=== PATIENT | male | born 1980 | race Two or more races ===

== ENCOUNTER 2024-02-20 19:29 | Emergency (ER) | payer MEDICAID, SELFPAY ==
[2024-02-20 19:30] VITALS: PULSE 86; RESP 14; O2SAT 99; BMI 25.0
[2024-02-20 19:37] VITALS: BP 159/90; PULSE 84; RESP 18; TEMP 36.9; O2SAT 98
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
== END 2024-02-20 20:16 | disposition home or self-care (01) ==
PROVIDERS: Emergency Provider Emergency Medicine; PCP Family Medicine
DX: S20.219A Contusion of unspecified front wall of thorax, initial encounter (principal); V89.2XXA Person injured in unspecified motor-vehicle accident, traffic, initial encounter
CPT/HCPCS: 71046; 99283

== ENCOUNTER 2024-04-09 21:12 | Emergency (ER) | payer MEDICAID, SELFPAY ==
[2024-04-09 21:12] VITALS: BMI 25.7
[2024-04-09 21:27] VITALS: BP 139/84; PULSE 97; RESP 18; TEMP 37.1; O2SAT 97
--- NOTE | 2024-04-09 21:33 | PD.EDRME ---
Rapid Medical Screening Exam RME Arrival date/time: 04/09/24 21:12 Chief Complaint: Skin/Abscess/Foreign Body Time Seen by Provider: 04/09/24 21:28 Vital signs: Vital Signs Temperature 98.7 F 04/09/24 21:27 Pulse Rate 97 04/09/24 21:27 Respiratory Rate 18 04/09/24 21:27 Blood Pressure 139/84 H 04/09/24 21:27 Pulse Oximetry (%) 97 04/09/24 21:27 Oxygen Delivery Method Room Air 04/09/24 21:27 E Narrative: Abscesses x2 to left forearm x3-4 days, reports arm swelling/tightness with mild redness. No dm hx.
[2024-04-09 21:58] LABS: Lactate (Lactic Acid) 0.9 mMol/L (0.4-2.0)
[2024-04-09 22:01] LABS: Basophils # (Auto) 0.1 Thou/mm3 (0.0-0.2); Basophils % (Auto) 1 % (0-2.5); Eosinophils # (Auto) 0.3 Thou/mm3 (0.0-0.5); Eosinophils % (Auto) 3 % (0-10); Hematocrit 39.1 % (41.0-53.0); Hemoglobin 12.6 g/dL (13.5-16.0); Immature Granulocytes % (Auto) 0 % (0-0); Immature Granulocytes Auto 0.03 Thou/mm3 (0.00-0.00); Lymphocytes # (Auto) 1.8 Thou/mm3 (1.0-4.8); Lymphocytes % (Auto) 15 % (10-50); Mean Corpuscular HGB Conc 32.2 g/dl (31.0-37.0); Mean Corpuscular Hemoglobin 26.9 pg (25.0-35.0); Mean Corpuscular Volume 83 fL (80-100); Monocytes # (Auto) 0.9 Thou/mm3 (0.0-0.8); Monocytes % (Auto) 7 % (0-12); Neutrophils # (Auto) 8.7 Thou/mm3 (1.8-7.7); Neutrophils % (Auto) 74 % (37-80); Nucleated Red Blood Cell % 0 /100 WBC (0); Platelet Count 268 Thou/mm3 (140-440); RDW Standard Deviation 45.1 fL (35.1-43.9); Red Blood Count 4.69 Miln/mm3 (4.50-5.90); White Blood Count 11.8 Thou/mm3 (3.8-10.6)
[2024-04-09 22:21] LABS: Sed Rate (ESR) 28 mm/hr (0-15)
[2024-04-09 22:32] LABS: Alanine Aminotransferase 16 U/L (10-49); Albumin, Serum 4.5 gm/dL (3.5-5.0); Albumin/Globulin Ratio 1.5 (1.2-2.2); Alkaline Phosphatase 97 U/L (46-116); Anion Gap 7 (7-16); Aspartate Amino Transferase 19 U/L (0-34); BUN/Creatinine Ratio 14 Ratio (12-20); Bilirubin,Total 0.4 mg/dL (0.3-1.2); Blood Urea Nitrogen 14 mg/dL (9-23); Calcium 9.6 mg/dL (8.3-10.6); Calcium (Corrected) 9.6 mg/dL (8.5-10.1); Carbon Dioxide 30.1 mMol/L (20.0-31.0); Chloride 104 mMol/L (98-107); Estimated Creatinine Clearance 106.5 mL/min (>60); Globulin 3.1 gm/dL (2.3-3.5); Glucose 86 mg/dL (74-106); Osmolality,Calculated 280 (275-295); Potassium 4.5 mMol/L (3.4-5.1); Procalcitonin 0.06 ng/ml (0.0-0.49); Sodium 141 mMol/L (136-145); Total Protein 7.6 gm/dL (5.7-8.2); eGFR > 60 See Note
[2024-04-09 22:46] LABS: C-Reactive Protein 1.5 mg/dL (0.0-0.9)
[2024-04-09 23:24] VITALS: BP 147/87; PULSE 86; RESP 18; TEMP 36.7; O2SAT 100
--- NOTE | 2024-04-09 23:25 | EDNOTE_ITS ---
ED Skin Abcess FB-RME/HPI General Chief complaint: Skin/Abscess/Foreign Body Stated complaint: LEFT ARM ABSCESS Time Seen by Provider: 04/09/24 21:28 Source: patient Arrival date/time: 04/09/24 21:12 Mode of arrival: ambulatory Limitations: no limitations RME / HPI RME / HPI narrative: Abscesses x2 to left forearm x3-4 days, reports arm swelling/tightness with mild redness. No dm hx. Dr. Jolly?s Main ED Evaluation: 43-year-old male with a history of frequent staph infection and cellulitis , who presents to the emergency department with redness and swelling over his left forearm after wearing heavy gloves cleaning out a house covered in birds. He has several small pimple like lesions to now have since grown and become increasingly red and has swelling around his forearm. He is left-hand dominant. Related Data Previous Rx's ?Medication ?Instructions ?Recorded ibuprofen 600 mg tablet 600 mg PO TID PRN pain #30 tabs 05/09/23 lidocaine 5 % topical patch 1 patch topical QDAY #15 ea 05/09/23 (Lidoderm) cephalexin 500 mg capsule 500 mg PO QID 5 days #20 caps 04/09/24 ibuprofen 600 mg tablet 600 mg PO Q8H PRN pain #14 tabs 04/09/24 sulfamethoxazole 800 1 tab PO BID #10 tabs 04/09/24 mg-trimethoprim 160 mg tablet (Bactrim DS) Allergies Allergy/AdvReac Type Severity Reaction Status Date / Time No Known Allergies Allergy Verified 02/20/24 19:33 Review of Systems Review of Systems Systems Reviewed: All systems reviewed, normal except as documented Past Medical History Past Medical History NEUROLOGIC: Negative Neurological Disorders or Seizures CARDIAC: Negative Cardiac Disorders, Congestive Heart Failure or Hypertension RESPIRATORY: Negative Chronic Obstructive Pulmonary Disease (COPD) GASTROINTESTINAL: Negative Gastrointestinal Disorders GENITOURINARY: Negative Genitourinary Disorders or Renal Disease MUSCULOSKELETAL: Negative Musculoskeletal Disorders ENDOCRINE: Negative Endocrine Disorders, Diabetes Mellitus Type 1 or Diabetes Mellitus Type 2 HEMATOLOGIC: Negative Blood Disorders PSYCHO/SOCIAL: Positive Recreational Drug Use OTHER HISTORY: Negative Hospitalization, Falls, Blood Transfusions, Blood Transfusion Reaction or Anesthesia Reactions Family History FAMILY HISTORY: Positive Family Cancer (Maternal grandpa-testicular ca) Social History SMOKING STATUS: Current some day smoker SECOND HAND EXPOSURE: Yes SUBSTANCE USE: methamphetamine and other (Vaping CBD) ED Exam Narrative Physical exam: GENERAL APPEARANCE: AxOx4, generally well-appearing, no acute distress. HEENT: NC, AT. MMM. EOMI, clear conjunctiva, oropharynx clear. NECK: Supple without lymphadenopathy. No stiffness or restricted ROM. HEART: Normal rate and regular rhythm, normal S1/S1, no m/r/g LUNGS: CTAB, moving air well. No crackles or wheezes are heard. ABDOMEN: Soft, nontender, nondistended with good bowel sounds heard. BACK: No midline C/T/L spine pain or deformity, No CVAT, no obvious deformity. EXTREMITIES: Without cyanosis, clubbing or edema. MUSCULOSKELETAL: FROM of all major joints, no chest tenderness NEUROLOGICAL: Grossly nonfocal. Alert and oriented, moving all 4 extremities. CN not formally tested but appear grossly intact. Observed to ambulate with normal gait. Skin: Warm and dry without any rash, left distal forearm has several punctate, erythematous, lesions on the dorsal aspect around his hair follicles. 2 largest are 1 cm in size with some early small blistering with clear honey colored fluid. There is no notable pus or fluctuance. He has surrounding edema without erythema. There is edema of the hand without erythema General Limitations: Present no limitations Course Quality Measures none Orders Category Date Time Status CBC Stat Lab 04/09/24 21:40 Completed CMP [Comprehensive Metabolic Panel] Stat Lab 04/09/24 21:40 Completed CRP [C-Reactive Protein] Stat Lab 04/09/24 21:40 Completed ESR [Sed Rate (ESR)] Stat Lab 04/09/24 21:40 Completed Lactate (Lactic Acid) Stat Lab 04/09/24 21:40 Completed Procalcitonin Stat Lab 04/09/24 21:40 Completed Acetaminophen Tab [Tylenol Tab] Med 04/09/24 23:35 Discontinued 650 mg PO X1 ONE Ketorolac Inj [Toradol Inj] Med 04/09/24 23:35 Discontinued 30 mg IM X1 ONE Vital Signs Vital signs: Vital Signs Temperature 98.7 F 04/09/24 21:27 Pulse Rate 97 04/09/24 21:27 Respiratory Rate 18 04/09/24 21:27 Blood Pressure 139/84 H 04/09/24 21:27 Pulse Oximetry (%) 97 04/09/24 21:27 Oxygen Delivery Method Room Air 04/09/24 21:27 Skin / Abscess / Foreign Body MDM Narrative MDM Narrative:: Mr. Forrester has relatively significant folliculitis of his left distal forearm particularly around the dorsal aspect where he has a heavy density of hair. At this point he appears to have primarily clear-colored blistering and drainage, no shaggy purulence. He does report a history of several staph infections of the skin and cellulitis. At this point considering this is an infection on his dominant arm, we will lean towards caution with double coverage for staph and for strep using Bactrim and cephalexin. Patient otherwise well-appearing, no signs of systemic infection, is appropriate for initial outpatient management. Laboratory testing was sent via the RME process which shows no acute findings. He does have mild, nonspecific elevations of his CRP, ESR which are not helpful in this case, due to his lack of specificity, and clinical exam consistent with an infection. Scribe Attestation: I, Myranda Hernandez, am scribing for and in the presence of Dr. Jolly. Provider Notation: Although this document has been carefully reviewed, there may still be some phonetic and other typographical errors. These errors are purely grammatical due to imperfections in the software program and should not be construed in any way to compromise the substance of the patient's medical care during this visit. Patient data External records reviewed:: [facility] previous records Clinical information provided by:: patient Social determinants that could affect healthcare access:: substance use Patient has the following chronic illnesses:: None How is presenting disease/condition affected by chronic disease/condition?: no chronic disease Evaluation data The following diagnostics were reviewed and interpreted by me:: lab results Lab and/or radiology exams considered but not ordered:: None Interpretation Summary: See narrative Medications / Prescriptions Medications or Prescriptions considered but not ordered:: None Medication administrations:: Medication Administration History Discontinued Medications Acetaminophen (Acetaminophen 325 Mg Tablet) 650 mg PO X1 ONE Stop: 04/09/24 23:36 Last Admin: 04/09/24 23:52 Dose: 650 mg Documented By: TERESE Ketorolac Tromethamine (Ketorolac Inj 60 Mg/2 Ml Vial) 30 mg IM X1 ONE Stop: 04/09/24 23:36 Last Admin: 04/09/24 23:52 Dose: 30 mg Documented By: SF As above, if any Consultations Consultation(s) initiated? (list below): No Diagnosis Skin/Abscess Differential Diagnosis: abscess of skin or subcutaneous tissue, viral exanthem, dermatophytosis, cellulitis, impetigo and contact dermatitis Most likely diagnosis given after review of the tests above:: See below Admission Indicated Admission indicated?: not indicated Explain why admission is indicated or not indicated:: Patient has no emergent abnormalities in their studies and can be managed on an outpatient basis. Admission Request Was there a request for admission?: No Disposition Plan Disposition Plan: Discharge Discharge Attestation Discharge Attestation: The patient and all family members were given an opportunity to ask questions and understood the discharge instructions. Discharge instructions specifically effects, indications for sooner follow up or return to the emergency department, and the expected course of current diagnosis. Patient condition: Stable Discharge Plan Plan Patient Disposition: HOME (Self Care) Prescriptions/Referrals Prescriptions/Med Rec: New sulfamethoxazole-trimethoprim [Bactrim DS] 800-160 mg tablet 1 tab PO BID Qty: 10 0RF cephalexin 500 mg capsule 500 mg PO QID 5 Days Qty: 20 0RF ibuprofen 600 mg tablet 600 mg PO Q8H PRN (Reason: pain) Qty: 14 0RF No Action ibuprofen 600 mg tablet 600 mg PO TID PRN (Reason: pain) Qty: 30 0RF lidocaine [Lidoderm] 5 % adhesive patch,medicated 1 patch topical QDAY Qty: 15 0RF Rx Instructions: leave on most painful area for up to 12 hrs Referrals: Fabian Guy MD [Primary Care Provider] - In 1 week Problem List Clinical Impression: Folliculitis, Cellulitis Patient/Caregiver Discharge Instructions Education Materials: ED Cellulitis, ED Folliculitis Additional Instructions: Follow-up with your primary care doctor in 3 to 5 days for recheck. You can return to the emergency department sooner if symptoms worsen or if you notice any new, concerning issues. Print Language: Wolof Stand Alone Forms: [employer] Award Info., Work/School Release, Patient Portal Info Letter
[2024-04-09] MEDS: KETOROLAC INJ 60 MG/2 ML VIAL 30 MG IM (23:52)
[2024-04-09] MEDS: ACETAMINOPHEN 325 MG TABLET 650 MG PO (23:52)
[2024-04-10 00:07] VITALS: BP 137/90; PULSE 78; RESP 16; TEMP 36.7; O2SAT 99
== END 2024-04-10 00:08 | disposition home or self-care (01) ==
PROVIDERS: Physician Assistant; Emergency Provider Emergency Medicine; PCP Family Medicine
DX: L03.114 Cellulitis of left upper limb (principal); L73.9 Follicular disorder, unspecified
CPT/HCPCS: 36415; 80053; 83605; 84145; 85025; 85652; 86140; 96372; 99283; J1885; A9270

== ENCOUNTER 2024-04-14 06:06 | Emergency (ER) | payer MEDICAID, SELFPAY ==
[2024-04-14 06:07] VITALS: BMI 25.7
[2024-04-14 06:09] VITALS: BP 150/90; PULSE 72; RESP 18; TEMP 36.6; O2SAT 100
[2024-04-14] MEDS: CLINDAMYCIN PHOS INJ 150 MG/ML VIAL 6 ML 600 MG IM (06:35)
--- NOTE | 2024-04-14 06:47 | EDNOTE_ITS ---
<Statement entered by Sarai Childers MD - 04/14/24 07:39> As co-signing physician, I was present and available for consult prn. I concur with the plan and care as documented by the midlevel provider. ED Skin Abcess FB-RME/HPI General Chief complaint: Skin/Abscess/Foreign Body Stated complaint: SORES TO LEFT ARM Time Seen by Provider: 04/14/24 06:13 Source: patient Arrival date/time: 04/14/24 06:06 This is a 43-year-old male who presents to the emergency department for follow- up on left arm infection. Does have recurrent history of frequent staph infection and cellulitis , who presents to the emergency department with redne ss and swelling over his left forearm he does report he was evaluated here in the emergency around 6 days ago has been taking his antibiotic however he did try to squeeze this small pimple-like lesions and now is red. Patient has 3 pimple-like lesions. Denies fever, chills no rigors Mode of arrival: ambulatory Limitations: no limitations Related Data Previous Rx's ?Medication ?Instructions ?Recorded ibuprofen 600 mg tablet 600 mg PO TID PRN pain #30 tabs 05/09/23 lidocaine 5 % topical patch 1 patch topical QDAY #15 ea 05/09/23 (Lidoderm) ibuprofen 600 mg tablet 600 mg PO Q8H PRN pain #14 tabs 04/09/24 sulfamethoxazole 800 1 tab PO BID #10 tabs 04/09/24 mg-trimethoprim 160 mg tablet (Bactrim DS) clindamycin HCl 300 mg capsule 300 mg PO Q8H 7 days #21 caps 04/14/24 mupirocin 2 % topical ointment 1 applic topical BID 7 days #15 04/14/24 grams Allergies Allergy/AdvReac Type Severity Reaction Status Date / Time No Known Allergies Allergy Verified 04/14/24 06:09 Review of Systems Review of Systems Systems Reviewed: All systems reviewed, normal except as documented Narrative Review of Systems: See HPI ED Exam Narrative Physical exam: GENERAL APPEARANCE: AxOx4, generally well-appearing, no acute distress appears disheveled. HEENT: NC, AT. MMM. EOMI, clear conjunctiva, oropharynx clear. NECK: Supple without lymphadenopathy. No stiffness or restricted ROM. HEART: Normal rate and regular rhythm, normal S1/S1, no m/r/g LUNGS: CTAB, moving air well. No crackles or wheezes are heard. ABDOMEN: Soft, nontender, nondistended with good bowel sounds heard. NEUROLOGICAL: Grossly nonfocal. Alert and oriented, moving all 4 extremities. CN not formally tested but appear grossly intact. Observed to ambulate with normal gait. Skin: Warm and dry without any rash, left distal forearm has there are 2 several punctate, erythematous, lesions on the dorsal aspect around his hair follicles. 2 largest are 1 cm in size with some early small blistering with clear honey colored fluid. There is no notable pus or fluctuance. He has surrounding edema without erythema. There is edema of the hand without erythema General Limitations: Present no limitations Course Quality Measures none Orders Category Date Time Status Clindamycin Vial [Cleocin vial] Med 04/14/24 06:22 Discontinued 600 mg IM X1 ONE Vital Signs Vital signs: Vital Signs Temperature 97.8 F 04/14/24 06:09 Pulse Rate 72 04/14/24 06:09 Respiratory Rate 18 04/14/24 06:09 Blood Pressure 150/90 H 04/14/24 06:09 Pulse Oximetry (%) 100 04/14/24 06:09 Oxygen Delivery Method Room Air 04/14/24 06:09 Skin / Abscess / Foreign Body MDM Narrative MDM Narrative:: 43-year-old male evaluated emergency department for small cellulitis follow-up. Reports the cellulitis has remained the same. Does report he took his Bactrim antibiotic. Still has a small lesions they are not fluctuant appear cellulitic. Has been attempting to express the areas which worsened the swelling. I did teach the patient not to be trying to express the areas or pick at them. Advised to do warm compresses 3 times a day apply the mupirocin I sent to the pharmacy. I did start him on clindamycin for the next 7 days. Advised him to follow-up with his PCP. There is no signs of sepsis, or systemic infection. Patient is awake alert vital signs stable. Will treat with a second round of antibiotics. Patient data External records reviewed:: [facility] previous records Clinical information provided by:: patient Social determinants that could affect healthcare access:: substance use Patient has the following chronic illnesses:: None How is presenting disease/condition affected by chronic disease/condition?: no chronic disease Evaluation data The following diagnostics were reviewed and interpreted by me:: lab results Lab and/or radiology exams considered but not ordered:: None Interpretation Summary: See narrative Medications / Prescriptions Medications or Prescriptions considered but not ordered:: None Medication administrations:: Medication Administration History Discontinued Medications Clindamycin Phosphate (Clindamycin Phos Inj 150 Mg/Ml Vial 6 Ml) 600 mg IM X1 ONE Stop: 04/14/24 06:23 Last Admin: 04/14/24 06:35 Dose: 600 mg Documented By: CB As above, if any Consultations Consultation(s) initiated? (list below): No Diagnosis Skin/Abscess Differential Diagnosis: abscess of skin or subcutaneous tissue, viral exanthem, dermatophytosis, cellulitis, impetigo and contact dermatitis Most likely diagnosis given after review of the tests above:: See below Admission Indicated Admission indicated?: not indicated Explain why admission is indicated or not indicated:: Patient has no emergent abnormalities in their studies and can be managed on an outpatient basis. Admission Request Was there a request for admission?: No Disposition Plan Disposition Plan: Discharge Discharge Attestation Discharge Attestation: The patient and all family members were given an opportunity to ask questions and understood the discharge instructions. Discharge instructions specifically effects, indications for sooner follow up or return to the emergency department, and the expected course of current diagnosis. Patient condition: Stable Discharge Plan Plan Patient Disposition: HOME (Self Care) Prescriptions/Referrals Prescriptions/Med Rec: New clindamycin HCl 300 mg capsule 300 mg PO Q8H 7 Days Qty: 21 0RF mupirocin 2 % ointment 1 applic topical BID 7 Days Qty: 15 0RF No Action sulfamethoxazole-trimethoprim [Bactrim DS] 800-160 mg tablet 1 tab PO BID Qty: 10 0RF ibuprofen 600 mg tablet 600 mg PO Q8H PRN (Reason: pain) Qty: 14 0RF ibuprofen 600 mg tablet 600 mg PO TID PRN (Reason: pain) Qty: 30 0RF lidocaine [Lidoderm] 5 % adhesive patch,medicated 1 patch topical QDAY Qty: 15 0RF Rx Instructions: leave on most painful area for up to 12 hrs Problem List Clinical Impression: Cellulitis, Abscess, Abscess of skin or subcutaneous tissue Patient/Caregiver Discharge Instructions Discharge Activity: activity as tolerated Education Materials: Abscess Drainage, ED Cellulitis Additional Instructions: Please do not pick at your wounds it worsens the area. Please apply the new antibiotic ointment to the area 3 times a day. 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 It might take some time for these wounds to heal and they become fluctuance and they start draining he can follow-up with your clinic for wound recheck. If you have any worsening symptoms you can return to the emergency department Print Language: Burmese Stand Alone Forms: Lupe Award Info., Patient Portal Info Letter PA/JOHNY Supervising Physician PA/JOHNY Supervising Physician: Dr. Childers
== END 2024-04-14 06:38 | disposition home or self-care (01) ==
LOC: SERX 06:44
PROVIDERS: Emergency Provider Emergency Medicine; PCP Family Medicine
DX: L03.114 Cellulitis of left upper limb (principal); L02.413 Cutaneous abscess of right upper limb
CPT/HCPCS: 96372; 99283; J0736

== ENCOUNTER 2024-12-27 08:47 | Emergency (ER) | payer MEDICAID, SELFPAY ==
[2024-12-27 09:04] VITALS: BP 128/86; PULSE 83; RESP 16; TEMP 36.9; O2SAT 97; BMI 25.0
--- NOTE | 2024-12-27 09:10 | XR_ITS ---
Examination: CT abdomen and pelvis without contrast. Coronal 3-D reconstructions. Sagittal 2-D reconstructions. Date and time of exam:December 27, 2024, 0921 hours INDICATIONS: Tenderness in the abdomen and abdominal pain this week CTDI: vol (mGy): 7.09 DLP: (mGycm): 117 Technique: Axial images of the abdomen have been obtained, 3 mm slice thickness Intravenous contrast material has not been administered. Low dose protocols were performed. One or more of the following dose reduction techniques were used; automated exposure control, adjustment of the mA and/or KV according to patient size, use of iterative reconstruction technique. Findings: No focal liver or splenic lesions No gallstones No pancreatic mass on this noncontrast study No extrahepatic biliary tract dilatation Bilateral renal calculi, the largest left kidney 6 mm No hydronephrosis or ureteral calculi Aorta normal size No pericecal inflammatory change No diverticulitis Contracted urinary bladder No prostatomegaly IMPRESSION: Limited noncontrast study No definite pancreatic mass Bilateral nonobstructing renal calculi
--- NOTE | 2024-12-27 09:10 | PD.EDRME ---
Rapid Medical Screening Exam E Arrival date/time: 12/27/24 08:47 44-year-old male with no known medical history presents to the emergency room with a chief complaint of tenderness and pain to the epigastric area of his abdomen. Patient states he recently got out of intermediate and was told he may have pancreatic cancer. I have greeted and performed a focused initial assessment of this patient. A comprehensive ED assessment and evaluation of the patient, analysis of all test results, and completion of the medical decision making process will be conducted by additional ED providers. Chief Complaint: General Adult/Misc Complain Time Seen by Provider: 12/27/24 09:04 Vital signs: Vital Signs Temperature 98.4 F 12/27/24 09:04 Pulse Rate 83 12/27/24 09:04 Respiratory Rate 16 12/27/24 09:04 Blood Pressure 128/86 H 12/27/24 09:04 Pulse Oximetry (%) 97 12/27/24 09:04 Oxygen Delivery Method Room Air 12/27/24 09:04 Vital signs reviewed by provider: Yes
[2024-12-27 09:22] LABS: Basophils # (Auto) 0.0 Thou/mm3 (0.0-0.2); Basophils % (Auto) 0 % (0-2.5); Eosinophils # (Auto) 0.2 Thou/mm3 (0.0-0.5); Eosinophils % (Auto) 2 % (0-10); Hematocrit 42.0 % (41.0-53.0); Hemoglobin 13.5 g/dL (13.5-16.0); Immature Granulocytes Auto 0.02 Thou/mm3 (0.00-0.00); Lymphocytes # (Auto) 1.9 Thou/mm3 (1.0-4.8); Lymphocytes % (Auto) 19 % (10-50); Mean Corpuscular HGB Conc 32.1 g/dl (31.0-37.0); Mean Corpuscular Hemoglobin 28.0 pg (25.0-35.0); Mean Corpuscular Volume 87 fL (80-100); Monocytes # (Auto) 0.6 Thou/mm3 (0.0-0.8); Monocytes % (Auto) 6 % (0-12); Neutrophils # (Auto) 7.0 Thou/mm3 (1.8-7.7); Neutrophils % (Auto) 72 % (37-80); Nucleated Red Blood Cell # 0.00 Thou/mm3 (0.00-0.00); Nucleated Red Blood Cell % 0 /100 WBC (0); Platelet Count 280 Thou/mm3 (140-440); RDW Standard Deviation 43.0 fL (35.1-43.9); Red Blood Count 4.83 Miln/mm3 (4.50-5.90); White Blood Count 9.8 Thou/mm3 (3.8-10.6)
[2024-12-27 09:39] LABS: Collection Type, Urine Clean Catch
[2024-12-27 09:54] LABS: Bilirubin,Urine Negative (Negative); Blood,Urine 1+ (Negative); Clarity,Urine Clear (Clear/Hazy); Color,Urine Lt-Yellow (Lt Yel-Yel); Glucose, Urine Negative (Negative); Ketones,Urine Negative (Negative); Leukocyte Esterase,Urine Negative (Negative); Nitrite,Urine Negative (Negative); PH,Urine 5.5 (5.0-7.0); Protein,Urine Trace (Neg - Trace); RBC,Urine 18 /hpf (0-3); Specific Gravity,Urine 1.031 (1.001-1.035); Squamous Epithelial Cell,Urine < 1 /hpf (0-5); Urobilinogen,Urine Negative mg/dL (0.0-1.0); WBC,Urine 4 /hpf (0-5)
[2024-12-27 10:07] LABS: Alanine Aminotransferase 22 U/L (10-49); Albumin, Serum 4.8 gm/dL (3.5-5.0); Albumin/Globulin Ratio 1.8 (1.2-2.2); Anion Gap 9 (7-16); Aspartate Amino Transferase 22 U/L (0-34); BUN/Creatinine Ratio 16 Ratio (12-20); Bilirubin,Total 0.4 mg/dL (0.3-1.2); Blood Urea Nitrogen 19 mg/dL (9-23); Calcium 10.2 mg/dL (8.3-10.6); Calcium (Corrected) 10.2 mg/dL (8.5-10.1); Carbon Dioxide 27.9 mMol/L (20.0-31.0); Chloride 105 mMol/L (98-107); Creatinine (Component) 1.2 mg/dL (0.6-1.3); Estimated Creatinine Clearance 87.9 mL/min (>60); Globulin 2.6 gm/dL (2.3-3.5); Glucose 115 mg/dL (74-106); Lipase 26 U/L (12-53); Osmolality,Calculated 286 (275-295); Potassium 3.7 mMol/L (3.4-5.1); Sodium 142 mMol/L (136-145); Total Protein 7.4 gm/dL (5.7-8.2); eGFR > 60 See Note
--- NOTE | 2024-12-27 11:00 | PC.NURSE ---
in to assess pt. pt with c/o abd pain for the past few day. states he was recently released from jail and was told he may have pancreatic cancer. pt without further complaints at this time. pending provider review. call light is within reach. plan of care ongoing.
[2024-12-27 11:04] LABS: Alkaline Phosphatase 90 U/L (46-116)
--- NOTE | 2024-12-27 11:10 | PD.EDADULT ---
ED General RME/HPI General Chief complaint: General Adult/Misc Complain Stated complaint: WANTS CHECK FOR PANCREATIC CANCER; ABD PAIN Time Seen by Provider: 12/27/24 09:04 Arrival date/time: 12/27/24 08:47 CC: Intermittent epigastric and upper abdominal pain recent onset several days ago. Patient was recently discharged from senior care where he was told he has pancreatic cancer . Patient is awake alert oriented nontoxic-appearing not in any acute distress, no active vomiting denies fever chills chest pain shortness of breath difficulty breathing headache blurred vision seeing spots. Patient denies drinking alcohol. RME / HPI RME / HPI narrative: 12/27/24 08:47 44-year-old male with no known medical history presents to the emergency room with a chief complaint of tenderness and pain to the epigastric area of his abdomen. Patient states he recently got out of custodial and was told he may have pancreatic cancer. I have greeted and performed a focused initial assessment of this patient. A comprehensive ED assessment and evaluation of the patient, analysis of all test results, and completion of the medical decision making process will be conducted by additional ED providers. Related Data Previous Rx's ?Medication ?Instructions ?Recorded ibuprofen 600 mg tablet 600 mg PO TID PRN pain #30 tabs 05/09/23 lidocaine 5 % topical patch 1 patch topical QDAY #15 ea 05/09/23 (Lidoderm) ibuprofen 600 mg tablet 600 mg PO Q8H PRN pain #14 tabs 04/09/24 sulfamethoxazole 800 1 tab PO BID #10 tabs 04/09/24 mg-trimethoprim 160 mg tablet (Bactrim DS) pantoprazole 20 mg tablet,delayed 20 mg PO QDAY #30 tabs 12/27/24 release (Protonix) Allergies Allergy/AdvReac Type Severity Reaction Status Date / Time No Known Allergies Allergy Verified 12/27/24 08:52 Review of Systems Review of Systems Narrative Review of Systems: GEN: No fever, no chills, no weight loss EYES: No discharge, no visual changes, no pain HEENT: No ear pain, no congestion, no sore throat PULM: No shortness of breath, no cough, no congestion CV: No chest pain, no dyspnea on exertion, no palpitations GI: No nausea, no vomiting, no diarrhea, + pain, no constipation : No frequency, no urgency, no dysuria MUSC/SKEL: No joint pain, no back pain SKIN: No rash PSYCH: No hallucinations, no depression HEME/LYMPH: No easy bleeding or bruising tendencies NEURO: No weakness, no headache Past Medical History Past Medical History NEUROLOGIC: Negative Neurological Disorders or Seizures CARDIAC: Negative Cardiac Disorders, Congestive Heart Failure or Hypertension RESPIRATORY: Negative Chronic Obstructive Pulmonary Disease (COPD) GASTROINTESTINAL: Negative Gastrointestinal Disorders GENITOURINARY: Negative Genitourinary Disorders or Renal Disease MUSCULOSKELETAL: Negative Musculoskeletal Disorders ENDOCRINE: Negative Endocrine Disorders, Diabetes Mellitus Type 1 or Diabetes Mellitus Type 2 HEMATOLOGIC: Negative Blood Disorders PSYCHO/SOCIAL: Positive Recreational Drug Use OTHER HISTORY: Negative Hospitalization, Falls, Blood Transfusions, Blood Transfusion Reaction or Anesthesia Reactions Family History FAMILY HISTORY: Positive Family Cancer (Maternal grandpa-testicular ca) Social History SMOKING STATUS: Current some day smoker SECOND HAND EXPOSURE: Yes SUBSTANCE USE: methamphetamine and other (Vaping CBD) ED Exam Narrative Physical exam: [General: Not in any acute distress Head normocephalic HEENT: Within acceptable limits Neck is supple nontender Chest equal chest rise nontender to palpation Respiratory: Clear to auscultation no wheezes crackles or rubs CV: Rate rhythm is regular no murmurs rubs or clicks Abdomen is soft nontender, in all 4 quadrants including the epigastrium no reflexive guarding no rebound tenderness. positive bowel sounds all 4 quadrants Back: No CVA tenderness no spinous process tenderness from cervical spine thoracic and lumbar spine Skin: Intact no petechiae rash induration ulceration or crepitus Extremities: Moving all extremity against resistance cap refill less than 2 seconds neurosensory intact Neuro: Awake alert oriented x3 Glascow coma 15 no focal deficits] Course Course Course Narrative: Patient has a benign exam, laboratory results are unremarkable. Of low index of suspicion of any acute pathologic finding. Will discharge the patient home on the little bit of Protonix, and advised him to avoid greasy spicy and fatty foods for the next 10 days or so. Patient is to follow-up with Dr. Guy as stated Quality Measures none Orders Category Date Time Status CT abdomen pelvis wo con Stat Exams 12/27/24 09:10 Completed CBC Stat Lab 12/27/24 09:15 Completed CMP [Comprehensive Metabolic Panel] Stat Lab 12/27/24 09:15 Completed Lipase Stat Lab 12/27/24 09:15 Completed UA [Urinalysis] Stat Lab 12/27/24 09:30 Completed Urine Culture Stat Lab 12/27/24 09:30 Received Vital Signs Vital signs: Vital Signs Temperature 98.4 F 12/27/24 09:04 Pulse Rate 83 12/27/24 09:04 Respiratory Rate 16 12/27/24 09:04 Blood Pressure 128/86 H 12/27/24 09:04 Pulse Oximetry (%) 97 12/27/24 09:04 Oxygen Delivery Method Room Air 12/27/24 09:04 Discharge Plan Plan Patient Disposition: HOME (Self Care) Patient condition on transfer: Stable Prescriptions/Referrals Prescriptions/Med Rec: New pantoprazole [Protonix] 20 mg tablet,delayed release (DR/EC) 20 mg PO QDAY Qty: 30 0RF No Action sulfamethoxazole-trimethoprim [Bactrim DS] 800-160 mg tablet 1 tab PO BID Qty: 10 0RF ibuprofen 600 mg tablet 600 mg PO Q8H PRN (Reason: pain) Qty: 14 0RF ibuprofen 600 mg tablet 600 mg PO TID PRN (Reason: pain) Qty: 30 0RF lidocaine [Lidoderm] 5 % adhesive patch,medicated 1 patch topical QDAY Qty: 15 0RF Rx Instructions: leave on most painful area for up to 12 hrs Referrals: No Primary/Family,Physician [Primary Care Provider] - In 1 week Fabian Guy MD [Physician, Family Practice] - In 1 week Problem List Clinical Impression: Abdominal pain Patient/Caregiver Discharge Instructions Other Activity Instructions:: Avoid greasy spicy and fatty foods take the medicines for 1 month just to see if they help out. If there is a worsening of symptoms in spite of the medications return the emergency room medially for further evaluation. Education Materials: Abdominal Pain, ED Diet, [place] (Adult) Print Language: Tajik Stand Alone Forms: Lupe Award Info., Patient Portal Info Letter, Work/School Release PA/NATIONAL SERVICE OFFICER Supervising Physician PA/NATIONAL SERVICE OFFICER Supervising Physician: Lucho Ross ENP [facility] Clinical Information Provided by: patient Medical Records reviewed [facility] Meds/Rx considered, not ordered None Labs/Rad/Tests considered, not ordered None Chronic Illness/Social Conditions which may negatively complicate care or outcome(s)-explain: None or not applicable EKG EKG not done Labs Labs: interpreted by dc Lab(s) Interpretation(s): CBC shows no acute leukocytosis anemia thrombocytopenia CMP shows a mildly elevated glucose other than otherwise no other electrolyte imbalances no renal impairment transaminitis or T. bili elevation Lipase is 26 Urine has trace blood but no other acute finding suggestive of UTI. Imaging Imaging interpretation: interpreted by me Imaging Interpretation(s): CT of the abdomen pelvis is unremarkable with no acute finding including no pancreatic mass. Medication Administration(s) none Diagnosis Differential Diagnosis ED Complaint MDM: Pancreatic mass reflux disease abdominal pain
[2024-12-27 11:15] VITALS: BP 126/72; PULSE 80; RESP 18; TEMP 36.8; O2SAT 98
== END 2024-12-27 11:24 | disposition home or self-care (01) ==
PROVIDERS: Nurse Practitioner Family; Emergency Provider Family Medicine
DX: R10.13 Epigastric pain (principal)
CPT/HCPCS: 36415; 74176; 80053; 81001; 83690; 85025; 87086; 99284

== ENCOUNTER 2025-01-24 07:57 | Emergency (ER) | payer MEDICAID, SELFPAY ==
[2025-01-24 08:07] VITALS: BP 146/88; PULSE 80; RESP 16; TEMP 36.7; O2SAT 99; BMI 25.0
--- NOTE | 2025-01-24 08:15 | XR_ITS ---
Examination: CT abdomen and pelvis without contrast. Coronal 3-D reconstructions. Sagittal 2-D reconstructions. Date and time of exam: January 24, 2025, 0927 hours, comparison 12/27/2024 INDICATIONS: Right upper abdominal pain and nausea today, history kidney stones on CT study 12/27/2024 CTDI: vol (mGy): 5.95 DLP: (mGycm): 368 Technique: Axial images of the abdomen have been obtained, 3 mm slice thickness Intravenous contrast material has not been administered. Low dose protocols were performed. One or more of the following dose reduction techniques were used; automated exposure control, adjustment of the mA and/or KV according to patient size, use of iterative reconstruction technique. Findings: No visualized liver or splenic lesion No gallstones No pancreatic or adrenal mass Bilateral renal calculi, 2 to 5 mm No hydronephrosis or ureteral calculi Aorta normal size. Normal appendix No bowel obstruction Contracted urinary bladder No prostatomegaly Grade 1 anterolisthesis L4 on L5 IMPRESSION: Bilateral nonobstructing renal calculi No hydronephrosis or ureteral calculi No CT findings of appendicitis bowel obstruction or diverticulitis No bladder calculi
--- NOTE | 2025-01-24 08:29 | XR_ITS ---
Examination: Abdomen sonogram, Limited Date and time of exam: January 24, 2025, 0859 hours INDICATIONS: Right upper abdominal pain beginning 3 months ago Technique: Real-time albright scale transabdominal sonographic images of the upper abdomen obtained. Findings: Gallbladder. Normal common bile duct 0.3 cm Pancreatic head 1.7 cm Liver 14.8 cm lobular contour fatty infiltration Normal hepatopetal portal venous flow Patent IVC IMPRESSION: Normal gallbladder Primary pelvis lighters disease with fatty infiltration no focal liver lesions
--- NOTE | 2025-01-24 08:29 | PD.EDABDPN ---
ED Abdominal Pain RME/HPI General Chief Complaint: Abdominal Pain Stated complaint: RUQ ABD PAIN, 09/06 Time seen by provider: 01/24/25 08:03 Arrival date/time: 01/24/25 07:57 44-year-old male Related Data Previous Rx's ?Medication ?Instructions ?Recorded ibuprofen 600 mg tablet 600 mg PO TID PRN pain #30 tabs 05/09/23 lidocaine 5 % topical patch 1 patch topical QDAY #15 ea 05/09/23 (Lidoderm) ibuprofen 600 mg tablet 600 mg PO Q8H PRN pain #14 tabs 04/09/24 sulfamethoxazole 800 1 tab PO BID #10 tabs 04/09/24 mg-trimethoprim 160 mg tablet (Bactrim DS) pantoprazole 20 mg tablet,delayed 20 mg PO QDAY #30 tabs 12/27/24 release (Protonix) Allergies Allergy/AdvReac Type Severity Reaction Status Date / Time No Known Allergies Allergy Verified 01/24/25 08:00 Course Orders Category Date Time Status CT abdomen pelvis wo con Stat Exams 01/24/25 08:15 Ordered CBC Stat Lab 01/24/25 08:15 Ordered CMP [Comprehensive Metabolic Panel] Stat Lab 01/24/25 08:15 Ordered Lipase Stat Lab 01/24/25 08:15 Ordered UA [Urinalysis] Stat Lab 01/24/25 08:15 Ordered Urine Culture Stat Lab 01/24/25 08:15 Ordered Vital Signs Vital signs: Vital Signs Temperature 98.1 F 01/24/25 08:07 Pulse Rate 80 01/24/25 08:07 Respiratory Rate 16 01/24/25 08:07 Blood Pressure 146/88 H 01/24/25 08:07 Pulse Oximetry (%) 99 01/24/25 08:07 Oxygen Delivery Method Room Air 01/24/25 08:07 Discharge Plan Prescriptions/Referrals Prescriptions/Med Rec: No Action sulfamethoxazole-trimethoprim [Bactrim DS] 800-160 mg tablet 1 tab PO BID Qty: 10 0RF ibuprofen 600 mg tablet 600 mg PO Q8H PRN (Reason: pain) Qty: 14 0RF pantoprazole [Protonix] 20 mg tablet,delayed release (DR/EC) 20 mg PO QDAY Qty: 30 0RF ibuprofen 600 mg tablet 600 mg PO TID PRN (Reason: pain) Qty: 30 0RF lidocaine [Lidoderm] 5 % adhesive patch,medicated 1 patch topical QDAY Qty: 15 0RF Rx Instructions: leave on most painful area for up to 12 hrs Patient/Caregiver Discharge Instructions Print Language: Persian
[2025-01-24 08:38] LABS: Basophils # (Auto) 0.1 Thou/mm3 (0.0-0.2); Basophils % (Auto) 1 % (0-2.5); Eosinophils # (Auto) 0.2 Thou/mm3 (0.0-0.5); Eosinophils % (Auto) 2 % (0-10); Hematocrit 43.2 % (41.0-53.0); Hemoglobin 13.9 g/dL (13.5-16.0); Immature Granulocytes Auto 0.03 Thou/mm3 (0.00-0.00); Lymphocytes # (Auto) 1.5 Thou/mm3 (1.0-4.8); Lymphocytes % (Auto) 15 % (10-50); Mean Corpuscular HGB Conc 32.2 g/dl (31.0-37.0); Mean Corpuscular Hemoglobin 27.7 pg (25.0-35.0); Mean Corpuscular Volume 86 fL (80-100); Monocytes # (Auto) 0.5 Thou/mm3 (0.0-0.8); Monocytes % (Auto) 5 % (0-12); Neutrophils # (Auto) 7.6 Thou/mm3 (1.8-7.7); Neutrophils % (Auto) 77 % (37-80); Nucleated Red Blood Cell # 0.00 Thou/mm3 (0.00-0.00); Nucleated Red Blood Cell % 0 /100 WBC (0); Platelet Count 254 Thou/mm3 (140-440); RDW Standard Deviation 42.6 fL (35.1-43.9); Red Blood Count 5.02 Miln/mm3 (4.50-5.90); White Blood Count 9.8 Thou/mm3 (3.8-10.6)
[2025-01-24 08:59] LABS: Alanine Aminotransferase 28 U/L (10-49); Albumin, Serum 4.9 gm/dL (3.5-5.0); Albumin/Globulin Ratio 2.0 (1.2-2.2); Alkaline Phosphatase 89 U/L (46-116); Anion Gap 7 (7-16); Aspartate Amino Transferase 26 U/L (0-34); BUN/Creatinine Ratio 17 Ratio (12-20); Bilirubin,Total 0.4 mg/dL (0.3-1.2); Blood Urea Nitrogen 17 mg/dL (9-23); Calcium 9.6 mg/dL (8.3-10.6); Calcium (Corrected) 9.6 mg/dL (8.5-10.1); Carbon Dioxide 30.9 mMol/L (20.0-31.0); Chloride 103 mMol/L (98-107); Creatinine (Component) 1.0 mg/dL (0.6-1.3); Estimated Creatinine Clearance 105.4 mL/min (>60); Globulin 2.4 gm/dL (2.3-3.5); Glucose 114 mg/dL (74-106); Lipase 30 U/L (12-53); Osmolality,Calculated 283 (275-295); Potassium 4.8 mMol/L (3.4-5.1); Sodium 141 mMol/L (136-145); Total Protein 7.3 gm/dL (5.7-8.2); eGFR > 60 See Note
[2025-01-24 09:01] LABS: Collection Type, Urine Clean Catch
[2025-01-24 09:07] LABS: Bilirubin,Urine Negative (Negative); Blood,Urine Trace (Negative); Clarity,Urine Clear (Clear/Hazy); Color,Urine Lt-Yellow (Lt Yel-Yel); Glucose, Urine Negative (Negative); Ketones,Urine Negative (Negative); Leukocyte Esterase,Urine Negative (Negative); Nitrite,Urine Negative (Negative); PH,Urine 6.0 (5.0-7.0); Protein,Urine Negative (Neg - Trace); RBC,Urine 10 /hpf (0-3); Specific Gravity,Urine 1.024 (1.001-1.035); Squamous Epithelial Cell,Urine 1 /hpf (0-5); Urobilinogen,Urine Negative mg/dL (0.0-1.0); WBC,Urine 1 /hpf (0-5)
--- NOTE | 2025-01-24 09:42 | EDRME_ITS ---
Rapid Medical Screening Exam [facility] Arrival date/time: 01/24/25 07:57 44-year-old male with a history of pancreatitis presents to the emergency room with a chief complaint of right upper quadrant abdominal pain x 3 days I have greeted and performed a focused initial assessment of this patient. A comprehensive ED assessment and evaluation of the patient, analysis of all test results, and completion of the medical decision making process will be conducted by additional ED providers. Chief Complaint: Abdominal Pain Time Seen by Provider: 01/24/25 08:03 Vital signs: Vital Signs Temperature 98.1 F 01/24/25 08:07 Pulse Rate 80 01/24/25 08:07 Respiratory Rate 16 01/24/25 08:07 Blood Pressure 146/88 H 01/24/25 08:07 Pulse Oximetry (%) 99 01/24/25 08:07 Oxygen Delivery Method Room Air 01/24/25 08:07 Vital signs reviewed by provider: Yes Exam: 6 out of 10 abdominal pain to the right upper quadrant and epigastric area with palpation Patient has clear bilateral lung sounds. Strong and regular rhythm S1 and S2 noted Clinical Impression: Pancreatitis/gastroenteritis/abdominal pain/Meg lithiasis/cholecystitis
[2025-01-24 11:14] VITALS: BP 144/81; PULSE 79; RESP 16; TEMP 36.9; O2SAT 98
--- NOTE | 2025-01-24 11:35 | PD.EDADULT ---
ED General RME/HPI General Chief complaint: Abdominal Pain Stated complaint: RUQ ABD PAIN, 09/06 Time Seen by Provider: 01/24/25 08:03 Arrival date/time: 01/24/25 07:57 CC: Epigastric pain HPI ongoing for 1 month worse after meals or laying down at night no prior history of similar events denies drinking alcohol has intermittent nausea vomiting currently has minimal pain no nausea no vomiting. No OTC medicines taken for this patient denies chest pain fever chills shortness of breath difficulty breathing or lower abdominal pain. Localized pain currently is 1-2 on a 10 scale. RME / HPI RME / HPI narrative: 01/24/25 07:57 44-year-old male with a history of pancreatitis presents to the emergency room with a chief complaint of right upper quadrant abdominal pain x 3 days I have greeted and performed a focused initial assessment of this patient. A comprehensive ED assessment and evaluation of the patient, analysis of all test results, and completion of the medical decision making process will be conducted by additional ED providers. Exam: 6 out of 10 abdominal pain to the right upper quadrant and epigastric area with palpation Patient has clear bilateral lung sounds. Strong and regular rhythm S1 and S2 noted Impression: Pancreatitis/gastroenteritis/abdominal pain/Meg lithiasis/cholecystitis Related Data Previous Rx's ?Medication ?Instructions ?Recorded ibuprofen 600 mg tablet 600 mg PO TID PRN pain #30 tabs 05/09/23 lidocaine 5 % topical patch 1 patch topical QDAY #15 ea 05/09/23 (Lidoderm) ibuprofen 600 mg tablet 600 mg PO Q8H PRN pain #14 tabs 04/09/24 sulfamethoxazole 800 1 tab PO BID #10 tabs 04/09/24 mg-trimethoprim 160 mg tablet (Bactrim DS) pantoprazole 20 mg tablet,delayed 20 mg PO QDAY #30 tabs 12/27/24 release (Protonix) famotidine 20 mg tablet 20 mg PO QDAY #30 tabs 01/24/25 Allergies Allergy/AdvReac Type Severity Reaction Status Date / Time No Known Allergies Allergy Verified 01/24/25 08:00 Review of Systems Review of Systems Narrative Review of Systems: GEN: No fever, no chills, no weight loss EYES: No discharge, no visual changes, no pain HEENT: No ear pain, no congestion, no sore throat PULM: No shortness of breath, no cough, no congestion CV: No chest pain, no dyspnea on exertion, no palpitations GI: No nausea, no vomiting, no diarrhea, + pain, no constipation : No frequency, no urgency, no dysuria MUSC/SKEL: No joint pain, no back pain SKIN: No rash PSYCH: No hallucinations, no depression HEME/LYMPH: No easy bleeding or bruising tendencies NEURO: No weakness, no headache Past Medical History Past Medical History NEUROLOGIC: Negative Neurological Disorders or Seizures CARDIAC: Negative Cardiac Disorders, Congestive Heart Failure or Hypertension RESPIRATORY: Negative Chronic Obstructive Pulmonary Disease (COPD) GASTROINTESTINAL: Negative Gastrointestinal Disorders GENITOURINARY: Negative Genitourinary Disorders or Renal Disease MUSCULOSKELETAL: Negative Musculoskeletal Disorders ENDOCRINE: Negative Endocrine Disorders, Diabetes Mellitus Type 1 or Diabetes Mellitus Type 2 HEMATOLOGIC: Negative Blood Disorders PSYCHO/SOCIAL: Positive Recreational Drug Use OTHER HISTORY: Negative Hospitalization, Falls, Blood Transfusions, Blood Transfusion Reaction or Anesthesia Reactions Family History FAMILY HISTORY: Positive Family Cancer Social History SMOKING STATUS: Current every day smoker SECOND HAND EXPOSURE: Yes SUBSTANCE USE: methamphetamine and other (Vaping CBD) ED Exam Narrative Physical exam: [General: Not in any acute distress Head normocephalic HEENT: Within acceptable limits Neck is supple nontender Chest equal chest rise nontender to palpation Respiratory: Clear to auscultation no wheezes crackles or rubs CV: Rate rhythm is regular no murmurs rubs or clicks Abdomen: Epigastric pain with palpation no reflexive guarding no rebound tenderness no left upper or right upper or lower abdominal pain. Positive bowel sounds all 4 quadrants. Back: No CVA tenderness no spinous process tenderness from cervical spine thoracic and lumbar spine Skin: Intact no petechiae rash induration ulceration or crepitus Extremities: Moving all extremity against resistance cap refill less than 2 seconds neurosensory intact Neuro: Awake alert oriented x3 Glascow coma 15 no focal deficits] Course Quality Measures none Orders Category Date Time Status CT abdomen pelvis wo con Stat Exams 01/24/25 08:15 Completed US gall bladder Stat Exams 01/24/25 08:29 Completed CBC Stat Lab 01/24/25 08:30 Completed CMP [Comprehensive Metabolic Panel] Stat Lab 01/24/25 08:30 Completed Lipase Stat Lab 01/24/25 08:30 Completed UA [Urinalysis] Stat Lab 01/24/25 08:30 Completed Urine Culture Stat Lab 01/24/25 08:30 Received Vital Signs Vital signs: Vital Signs Temperature 98.1 F 01/24/25 08:07 Pulse Rate 80 01/24/25 08:07 Respiratory Rate 16 01/24/25 08:07 Blood Pressure 146/88 H 01/24/25 08:07 Pulse Oximetry (%) 99 01/24/25 08:07 Oxygen Delivery Method Room Air 01/24/25 08:07 Discharge Plan Plan Patient Disposition: HOME (Self Care) Patient condition on transfer: Stable Prescriptions/Referrals Prescriptions/Med Rec: New famotidine 20 mg tablet 20 mg PO QDAY Qty: 30 1RF No Action sulfamethoxazole-trimethoprim [Bactrim DS] 800-160 mg tablet 1 tab PO BID Qty: 10 0RF ibuprofen 600 mg tablet 600 mg PO Q8H PRN (Reason: pain) Qty: 14 0RF pantoprazole [Protonix] 20 mg tablet,delayed release (DR/EC) 20 mg PO QDAY Qty: 30 0RF ibuprofen 600 mg tablet 600 mg PO TID PRN (Reason: pain) Qty: 30 0RF lidocaine [Lidoderm] 5 % adhesive patch,medicated 1 patch topical QDAY Qty: 15 0RF Rx Instructions: leave on most painful area for up to 12 hrs Referrals: Fabian Guy MD [Primary Care Provider, Family Practice] - In 1 week Problem List Clinical Impression: Acid reflux Patient/Caregiver Discharge Instructions Other Activity Instructions:: Take the medications as prescribed bland diet for the next 10 days. Avoid eating foods for 2 hours prior to going to sleep. Follow-up with your primary care doctor if there is worsening of symptoms spite of the medications intervention return the emergency room meetly for further evaluation. Education Materials: GERD Dc Print Language: [place] Stand Alone Forms: Lupe Award Info., Patient Portal Info Letter, Work/School Release PA/[employer] Supervising Physician PA/[employer] Supervising Physician: Lucho Ross ENp [facility] Clinical Information Provided by: patient Medical Records reviewed [facility] Meds/Rx considered, not ordered None Labs/Rad/Tests considered, not ordered None Chronic Illness/Social Conditions which may negatively complicate care or outcome(s)-explain: None or not applicable EKG EKG not done Labs Labs: interpreted by [facility] Lab(s) Interpretation(s): CBC shows no acute leukocytosis anemia thrombocytopenia CMP shows no significant electrolyte imbalances renal impairment transaminitis or T. bili elevation Urine is negative Imaging Imaging interpretation: interpreted by me Imaging Interpretation(s): Gallbladder is unremarkable CT of the abdomen is negative for any acute finding. Diagnosis Differential Diagnosis ED Complaint MDM: Cholelithiasis pancreatitis gastritis
== END 2025-01-24 12:09 | disposition home or self-care (01) ==
PROVIDERS: Nurse Practitioner Family; Emergency Provider Family Medicine; PCP Family Medicine
DX: K52.9 Noninfective gastroenteritis and colitis, unspecified (principal)
CPT/HCPCS: 36415; 74176; 76705; 80053; 81001; 83690; 85025; 87086; 99283